=== PATIENT | male | born 2000 | race African-American/Black ===

== ENCOUNTER 2025-08-24 17:58 | Emergency (ER) | payer OTHER | END 2025-08-24 20:35 | disposition home or self-care (01) | LOC: JD.ED 17:58 | DX: S62.637A Displaced fracture of distal phalanx of left little finger, initial encounter for closed fracture (principal); S61.317A Laceration without foreign body of left little finger with damage to nail, initial encounter; W23.1XXA Caught, crushed, jammed, or pinched between stationary objects, initial encounter; Y99.0 Civilian activity done for income or pay | CPT/HCPCS: 12001; 73140; 99283; J2003 ==

== ENCOUNTER 2025-08-31 14:05 | Emergency (ER) | payer OTHER | END 2025-08-31 15:15 | disposition home or self-care (01) | LOC: JD.ED 14:05 | DX: S61.211D Laceration without foreign body of left index finger without damage to nail, subsequent encounter (principal); Z48.02 Encounter for removal of sutures | CPT/HCPCS: 99281 ==